=== PATIENT | female | born 1970 | race Caucasian/White ===

== ENCOUNTER 2020-04-21 20:56 | Emergency (ER) | payer OTHER ==
[~2020-04-21] VITALS: Ht 177.8 cm; Wt 97.4 kg
--- NOTE | 2020-04-21 21:27 | NUR ---
PEDRO ERAZO AT BEDSIDE FOR ASSESSMENT
[2020-04-21 21:49] LABS: BASOPHILS # (AUTO) 0.02 x10^3/uL (0-0.1); BASOPHILS % (AUTO) 1 % (0-1); EOSINOPHILS # (AUTO) 0.04 x10^3/uL (0-0.4); EOSINOPHILS % (AUTO) 1 % (1-7); LYMPHOCYTES # (AUTO) 1.26 x10^3/uL (1-3.4); LYMPHOCYTES % (AUTO) 32 % (22-44); MD NO; MEAN CORPUSCULAR HEMOGLOBIN 31.4 pg (27.0-34.8); MEAN CORPUSCULAR HGB CONC 33.5 g/dL (32.4-35.8); MEAN PLATELET VOLUME 7.6 fL (7.4-10.4); MONOCYTES # (AUTO) 0.44 x10^3/uL (0.2-0.8); MONOCYTES % (AUTO) 11 % (2-9); NEUTROPHILS # (AUTO) 2.18 x10^3/uL (1.8-6.8); NEUTROPHILS % (AUTO) 55 % (42-75); PLATELET COUNT 213 x10^3/uL (130-400); RED BLOOD COUNT 4.88 x10^6/uL (3.82-5.3); RED CELL DISTRIBUTION WIDTH 13.5 % (9.6-15.2)
--- NOTE | 2020-04-21 21:50 | NUR ---
THIS IS A 50Y F THAT COMES IN AFTER FEELING FATIGUED AND SOB. PT TESTED POSITIVE FOR COVID [employer] AND HAS BEEN AT HOTEL SINCE. PT ABLE TO SPEAK IN FULL SENTENCES AND AMBULATE WITHOUT ASSIST. PT CONNECTED TO ALL MONITORING VSS, NADN. AWAITING FURTHER ORDERS
[2020-04-21] MEDS ORDERED: SODIUM CHLORIDE 0.9% 1,000ML IVBOLUS ONE (22:00)
[2020-04-21] MEDS ORDERED: SODIUM CHLORIDE FLUSH 10ML SYR IVF ONE (22:00)
[2020-04-21 22:02] LABS: ALANINE AMINOTRANSFERASE 38 U/L (12-78); ALBUMIN 3.4 g/dL (3.4-5.0); ANION GAP 10 mmol/L (5-15); CALCIUM 8.6 mg/dL (8.5-10.1); CHLORIDE 104 mmol/L (98-107); CREATININE 0.85 mg/dL (0.55-1.02)
[2020-04-21 22:06] LABS: ALKALINE PHOSPHATASE 101 U/L (45-117); BILIRUBIN,TOTAL 0.2 mg/dL (0.2-1.0); TROPONIN I < 0.015 ng/mL (0.000-0.045)
[2020-04-21] MEDS ORDERED: DEXAMETHASONE 4 MG TABLET PO ONE (22:30)
[2020-04-21] MEDS ORDERED: AZITHROMYCIN 500 MG TABLET PO ONE (22:30)
[2020-04-22] MEDS ORDERED: DEXAMETHASONE 4 MG TABLET ONE (00:08)
[2020-04-22] MEDS ORDERED: AZITHROMYCIN 500 MG TABLET ONE (00:08)
--- NOTE | 2020-04-22 00:25 | NUR ---
FLUIDS INFUSING W/OUT DIFFICULTY AT THIS TIME. PT RESTING ON NIKOLAY CALLAHAN.
[2020-04-22] MEDS ORDERED: ONDANSETRON 2MG/ML, 2ML ONE (00:49)
--- NOTE | 2020-04-22 00:56 | NUR ---
PT REPORTED NAUSEA, UPDATED ADDITONAL ORDER FOR ZOFRAN. PT MEDICATED PER DEC. FLUIDS STILL INFUSING
[2020-04-22] MEDS ORDERED: ONDANSETRON 2MG/ML, 2ML IVPush ONE (01:00)
[2020-04-22 01:46] VITALS: BP 111/68
== END 2020-04-22 01:49 | disposition home or self-care (01) ==
LOC: ED 22:52
DX: R06.00 Dyspnea, unspecified (principal); J18.9 Pneumonia, unspecified organism; R00.0 Tachycardia, unspecified; I10 Essential (primary) hypertension; E03.9 Hypothyroidism, unspecified
CPT/HCPCS: 36415; 71045; 80053; 83880; 84484; 85025; 93005; 96374; 99285; J2405; J7030